=== PATIENT | female | born 1955 | race Caucasian/White ===

== ENCOUNTER → 2016-10-27 | Outpatient (CLI) | payer OTHER ==
[~2016-10-27] MED LIST: PHENERGAN25 MG PO
--- NOTE | ~2016-10-27 | MY29 ---
[facility] A Service of [facility] RADIOLOGY TEXT RESULTS PATIENT: PETRA WARD LOCATION: [facility] : 59 UNIT #: [id number] AGE: [address]: Zuri Browning MD SEX: F ORDER DR: [id number] [facility]. [place], [place] [address] [id number] O MR#: [id number] Acc #: [id number] NAME: PETRA WARD : 1955 SEX: F STUDY DATE/TIME: 10/27/2016 16:39 UNIT: [facility] ROOM: STUDY DESCRIPTION: MY ALMA SCREENING W/ CAD BILAT Attending Physician: Zuri Browning M.D. Referring Physician: Zuri Browning M.D. Ordering Physician: Zuri Browning M.D. Primary Care Physician: Zuri Browning M.D. MEDICAL IMAGING REPORT This report is preliminary unless electronic signature is present EXAM Digital screening mammogram, 10/27/2016 HISTORY 60-year-old woman positive family history, mother/sister/grandparents. Annual screening. COMPARISON 05/09/2007, 05/06/2009 FINDINGS Digital imaging of each breast was completed utilizing a two-view examination of each breast in craniocaudal and mediolateral-oblique projections. Review and interpretation of digital mammograms include a second review in conjunction with FDA-approved CAD device. There is a normal parenchymal presentation bilaterally consistent with the patient's age. There are no breast masses imaged and no parenchymal asymmetry is visualized. There are no suspicious microcalcifications and I see no focal architectural disturbance. IMPRESSION Negative screening digital mammogram. One-year followup recommended. Patients over the age of 40 are entered into a reminder system with target due date for the next mammogram. A result letter will also be sent to the patient. BIRADS: 1 Negative ADDENDUM Breast parenchyma is fatty replaced. Dictated by... [facility] A Service [facility] RADIOLOGY TEXT RESULTS PATIENT: PETRA WARD LOCATION: [facility] : 59 UNIT #: [id number] AGE: [address]: Zuri Browning MD SEX: F ORDER DR: Bebeto Gaffney M.D. THIS IS AN ELECTRONICALLY VERIFIED REPORT Bebeto Gaffney M.D. at 10/30/2016 2:19 PM Sonia TD: 10/30/2016 09:12 JOB #: [id number] MEDICAL IMAGING REPORT Page 1 of 1 COPY
== END | disposition home or self-care (01) ==
LOC: CWCC 16:14
DX: Z12.31 Encounter for screening mammogram for malignant neoplasm of breast (principal); Z80.3 Family history of malignant neoplasm of breast
CPT/HCPCS: G0202